=== PATIENT | male | born 1955 | race Caucasian/White ===

== ENCOUNTER → 2017-02-21 | Outpatient (CLI) | payer BC ==
--- NOTE | 2017-02-21 14:43 | XR ---
Lumbar spine HISTORY: Sciatica left side, left hip pain or graph 3 views of the lumbar spine No comparisons Multilevel spondylosis is present with loss of disc height at the intervertebral levels. Vacuum pheno nette present at L5-S1. Sclerosis present in the posterior elements of the lower lumbar spine. There is a mild levoscoliosis centered at L2. Lumbar vertebral bodies show preserved height and bone minera lization. There are vascular calcifications present within the aorta. IMPRESSION: Degenerative disc disease, facet arthropathy, spinal curvature.
== END | disposition home or self-care (01) ==
LOC: RADXRMAIN 13:37
PROVIDERS: ATTEND Family Medicine
DX: M51.16 Intervertebral disc disorders with radiculopathy, lumbar region (principal); M46.96 Unspecified inflammatory spondylopathy, lumbar region; M43.9 Deforming dorsopathy, unspecified
CPT/HCPCS: 72100

== ENCOUNTER → 2017-03-25 | Outpatient (CLI) | payer BC ==
--- NOTE | 2017-03-25 10:59 | MR ---
EXAMINATION TYPE: MR lumbar spine wo con DATE OF EXAM: 03/25/2017 COMPARISON: Plain film 02/21/2017 HISTORY: Sciatica, left side, back pain, left leg numbness TECHNIQUE: Multiplanar, multisequence images of the lumbar spine were acquired. L1-L2: Posterior broad-based disc bulge causes anterolateral mass effect on the thecal sac somewhat e ccentric towards the right. No central stenosis or foraminal encroachment. L2-L3: Posterior extension of endplate disc complex causes mild anterior mass effect on the thecal sa c. No significant central stenosis or foraminal encroachment. There is facet arthropathy encroaching on the right lateral recess. L3-L4: Posterior broad-based disc bulge, endplate disc complex causes anterior mass effect on the the vasiliy sac, only mild central canal stenosis is present. There is facet arthropathy with hypertrophy of the ligamentum flavum encroaches slightly on the lateral recesses. There is some mild foraminal encro achment on the right contributed by scoliosis. L4-L5: Left posterior paracentral disc herniation causes anterolateral mass effect on the thecal sac, mild central canal stenosis, there is facet arthropathy with hypertrophy of the ligamentum flavum en croaching on the lateral recesses, this mass effect greater on the posterior lateral thecal sac on th e left than on the right which may be contributed by the scoliosis. Circumferential extension of endp late disc complex is noted. L5-S1: Posterior extension of endplate disc complex causes anterior mass effect on the thecal sac linette ewhat eccentric towards the right, circumferential extension endplate disc complex causes foraminal e ncroachment left greater than right. Lumbar segments are intact. No paraspinal masses are identified. Conus medullaris has a normal appe arance. There is a spinal curvature. Multilevel spondylosis is present. There is loss of disc height and signal at the intervertebral levels, multilevel vacuum phenomenon present. Endplate discogenic ma rrow signal changes are present. There is a spinal curvature. The left kidney shows a cystic focus in the renal pelvis. IMPRESSION: Degenerative disc disease, facet arthropathy, scoliosis.
== END | disposition home or self-care (01) ==
LOC: RADMRIMAIN 06:36
PROVIDERS: ATTEND Family Medicine
DX: M51.16 Intervertebral disc disorders with radiculopathy, lumbar region (principal); M41.86 Other forms of scoliosis, lumbar region; M46.86 Other specified inflammatory spondylopathies, lumbar region
CPT/HCPCS: 72148

== ENCOUNTER → 2017-08-19 | Outpatient (CLI) | payer BC ==
--- NOTE | 2017-08-19 14:16 | XR ---
EXAMINATION TYPE: XR chest 2V DATE OF EXAM: 08/19/2017 COMPARISON: NONE HISTORY: Preoperative clearance. No complaints. TECHNIQUE: Frontal and lateral views of the chest are obtained. FINDINGS: There is no focal air space opacity, pleural effusion, or pneumothorax seen. The cardiac silhouette size is within normal limits. The osseous structures are intact. Acromioclavicular arthr opathy is incidentally noted bilaterally. IMPRESSION: No acute cardiopulmonary process.
== END | disposition home or self-care (01) ==
LOC: RADXRMAIN 13:44
PROVIDERS: ATTEND Orthopaedic Surgery Orthopaedic Surgery of the Spine
DX: Z01.818 Encounter for other preprocedural examination (principal); Z01.812 Encounter for preprocedural laboratory examination
CPT/HCPCS: 71046

== ENCOUNTER → 2021-06-05 | Outpatient (CLI) | payer BC ==
[2021-06-05 14:06] LABS: African American GFR (CKD) >90 (>60 ml/min/1.73 sqM); Blood Urea Nitrogen 18 mg/dL (9-20); Non-African American GFR(CKD) >90 (>60 ml/min/1.73 sqM)
--- NOTE | 2021-06-05 14:57 | CT ---
EXAMINATION TYPE: CT iac w con DATE OF EXAM: 06/05/2021 COMPARISON: None HISTORY: Pulsatile tinnitus of right ear. CT DLP: 258 mGycm Automated exposure control for dose reduction was used. CONTRAST: CT scan of the IACs is performed with IV Contrast, patient injected with 100ml mL of Isovue 300. FINDINGS: The external auditory canals are patent bilaterally. Mastoid air cells show no evidence of abnormal opacification bilaterally. The middle ear ossicles are symmetric and unremarkable. There is no evidence of suspicious surrounding soft tissue density to suggest cholesteatoma. The scutum is preserved bilaterally. The cochlea and the semicircular canals are symmetric and unremarkable. Ves tibular aqueduct and internal carotid canal appear unremarkable. Temporomandibular joints are mainta ined bilaterally. IMPRESSION: No significant abnormality seen to account for patient's symptoms.
--- NOTE | 2021-06-05 15:05 | US ---
EXAMINATION TYPE: US carotid duplex BILAT DATE OF EXAM: 06/05/2021 COMPARISON: NONE CLINICAL HISTORY: H93.A9 Pulsatile tinnitus. EXAM MEASUREMENTS: RIGHT: Peak Systolic Velocity (PSV) cm/sec ----- Right CCA: 80.8 ----- Right ICA: 85.7 ----- Right ECA: 108 ICA/CCA ratio: 1.06 RIGHT: End Diastole cm/sec ----- Right CCA: 31.7 ----- Right ICA: 28.0 ----- Right ECA: 28.6 LEFT: Peak Systolic Velocity (PSV) cm/sec ----- Left CCA: 90.0 ----- Left ICA: 87.8 ----- Left ECA: 81.8 ICA/CCA ratio: 0.98 LEFT: End Diastole cm/sec ----- Left CCA: 26.3 ----- Left ICA: 34.0 ----- Left ECA: 14.3 VERTEBRALS (direction of flow): Right Vertebral: Antegrade Left Vertebral: Antegrade Rhythm: Normal No elevated velocities Hypoechoic mass seen distal to Right bifurcation measuring 1.1 x 0.9 x 0.9 cm IMPRESSION: 1. No hemodynamically significant stenosis. 2. Carotid body tumor is difficult to exclude. Correlate clinically. Criteria for Assigning % of Stenosis / Diameter reduction (Estimation based on the indirect measurements of the internal carotid artery velocities (ICA PSV). 1. Normal (no stenosis)=ICA PSV < 125 cm/s: ratio < 2.0: ICA EDV<40 cm/s. 2. Less than 50% stenosis=ICA PSV < 125 cm/s: ratio < 2.0: ICA EDV<40 cm/s. 3. 50 to 69% stenosis=ICA PSV of 125 to 230 cm/s: ration 2.0 ? 4.0: ICA EDV 40-100 cm/s. 4. Greater than 70% stenosis to near occlusion= ICA PSV > 230 cm/s: ratio > 4.0: ICA EDV > 100 cm/s. 5. Near occlusion= ICA PSV velocities may be low or undetectable: variable ratio and ICA EDV. 6. Total occlusion=unable to detect flow.
== END | disposition home or self-care (01) ==
LOC: RADCTMAIN 13:29
PROVIDERS: ATTEND Otolaryngology
DX: H93.A9 Pulsatile tinnitus, unspecified ear (principal)
CPT/HCPCS: 82565; 84520; 93880; 70481; 36415; Q9967

== ENCOUNTER → 2021-06-18 | Outpatient (CLI) | payer BC ==
[2021-06-18 06:51] LABS: African American GFR (CKD) >90 (>60 ml/min/1.73 sqM); Blood Urea Nitrogen 22 mg/dL (9-20); Non-African American GFR(CKD) 86 (>60 ml/min/1.73 sqM)
--- NOTE | 2021-06-18 11:25 | CT ---
EXAMINATION TYPE: CT soft tissue neck w con DATE OF EXAM: 06/18/2021 7:18 AM COMPARISON: None available HISTORY: Pulsatile and ringing in ears, abnormal carotid doppler CT DLP: 443.1 mGycm Automated exposure control for dose reduction was used. CONTRAST: CT scan of the neck is performed following with IV Contrast, patient injected with 100 mL of Isovue 3 00. Axial images are obtained, coronal and sagittal reformatted images are reviewed. FINDINGS: Artifacts from the dental work. Well-defined soft tissue nodule is seen measuring 11 x 12 x 13 mm and seen severity between the proximal portion of the right internal carotid artery and the right epidemiology intern al jugular vein without nydia invasion or significant stenosis of the adjacent vessels. This incomple te characterized and could represent a prominent lymph node however other soft tissue lesion at that location cannot be excluded. No significant enhancement is seen in this single phase CT scan. Unremarkable nasopharynx, oropharynx, hypopharynx, larynx, and visualized portion of the trachea and esophagus. Scattered arterial atherosclerotic calcifications. No significant stenosis of the internal carotid arteries. Please note that CTA was not performed. Patent major neck vessels. Scattered millimetric hypodensities are seen within the thyroid gland. Symmetrical unremarkable parot id and submandibular salivary glands. No other pathologically enlarged lymph nodes in the neck. Bilat eral apical pleural minimal fibrotic changes. Mild mucosal thickening of the left maxillary sinus. Cl ear mastoid air cells. Degenerative changes of the cervical spine. IMPRESSION: 13 mm soft tissue nodule is seen between the proximal portion of the right internal carotid artery an d the right internal jugular vein as described above. The location and enhancement is atypical for ca rotid body tumor or paragangliomas. This could represent a prominent lymph node. Further scintigraphy including MIBG or Octreoscan can be considered. If negative, Another follow-up CT scan in 2-3 months should be also considered for reassessment.
== END | disposition home or self-care (01) ==
LOC: RADCTMAIN 06:11
PROVIDERS: ATTEND Otolaryngology
DX: R22.1 Localized swelling, mass and lump, neck (principal)
CPT/HCPCS: 82565; 84520; 70491; 36415; Q9967

== ENCOUNTER → 2021-08-13 | Outpatient (CLI) | payer BC ==
--- NOTE | 2021-08-13 11:36 | P.STRESS ---
- Stress Test Note Stress Test Results/Findings: Exam Performed: stress echo exercise Exam Date: 08/13/21 Reason for Exam: chest discomfort Height: 6 ft Weight: 87.543 kg Protocol: Franky Stage: III Duration of Exercise: 7:11 min Resting Heart Rate: 69 Resting Blood Pressure: 121/71 Maximum Achieved Heart Rate: 154 Maximum Achieved Blood Pressure: 185/66 85% PMHR: 131 100% PMHR: 154 METS: Technologist Comment: Stress Test Results/Findings: Patient underwent exercise stress echo with a Franky protocol treadmill stress test. Patient exercised into Stage 2 for a total of 7 minutes and 11 seconds. Patient's maximum heart rate was 154 which represented 100% age-predicted maximum heart rate. There was no chest pain or pressure noted with exertion. Stress EKG portion: At baseline patient's EKG showed normal sinus rhythm, normal axis, no significant ST or T wave abnormalities. At peak exercise, EKG showed abnormal EKG response with 1.[address] depressions in the inferior and lateral leads concerning for ischemia. Stress echo portion: 2-D echocardiogram was performed in the parasternal long, personal short, apical 2 and apical four-chamber views at rest, peak exercise and in recovery. At baseline, echocardiogram showed left ventricular ejection fraction 55% without wall motion abnormalities. With peak exercise, echocardiogram shows small sized basal inferior and inferolateral hypokinesis consistent with ischemia. Conclusions: 1. Abnormal EKG and echo response to exercise with inducible inferior hypokines is. 2. Fair exercise capacity. 3. Normal EF 55%.
--- NOTE | 2021-08-15 11:41 | EST ---
Stress Test Results/Findings: Exam Performed: stress echo exercise Exam Date: 08/13/21 Reason for Exam: chest discomfort Height: 6 ft Weight: 87.543 kg Protocol: Franky Stage: III Duration of Exercise: 7:11 min Resting Heart Rate: 69 Resting Blood Pressure: 121/71 Maximum Achieved Heart Rate: 154 Maximum Achieved Blood Pressure: 185/66 85% PMHR: 131 100% PMHR: 154 METS: Technologist Comment: Stress Test Results/Findings: Patient underwent exercise stress echo with a Franky protocol treadmill stress test. Patient exercised into Stage 2 for a total of 7 minutes and 11 seconds. Patient's maximum heart rate was 154 which represented 100% age-predicted maximum heart rate. There was no chest pain or pressure noted with exertion. Stress EKG portion: At baseline patient's EKG showed normal sinus rhythm, normal axis, no significant ST or T wave abnormalities. At peak exercise, EKG showed abnormal EKG response with 1.[address] depressions in the inferior and lateral leads concerning for ischemia. Stress echo portion: 2-D echocardiogram was performed in the parasternal long, personal short, apical 2 and apical four-chamber views at rest, peak exercise and in recovery. At baseline, echocardiogram showed left ventricular ejection fraction 55% without wall motion abnormalities. With peak exercise, echocardiogram shows small sized basal inferior and inferolateral hypokinesis consistent with ischemia. Conclusions: 1. Abnormal EKG and echo response to exercise with inducible inferior hypokinesis. 2. Fair exercise capacity. 3. Normal EF 55%. MTDD
== END | disposition home or self-care (01) ==
LOC: RADNMMAIN 09:30
PROVIDERS: ATTEND Family Medicine
DX: R94.31 Abnormal electrocardiogram [ECG] [EKG] (principal); I10 Essential (primary) hypertension
CPT/HCPCS: 93306; 93351

== ENCOUNTER 2021-09-20 07:47 | Day surgery (SDC) | payer BC ==
[2021-09-18 12:24] VITALS: BMI 27.8
[~2021-09-20 07:47] MED LIST: ALPRAZolam 0.25 MG TAB PO PRN; ALPRAZolam 0.5 MG TAB PO PRN; ASPIRIN 325 MG TAB PO STA; ATORVASTATIN 80 MG TAB PO STA; HEPARIN SODIUM,PORCINE 10,000 UNIT in SODIUM CHLORIDE 0.9% 1,000 ML IRRIGATION PRN; HEPARIN SODIUM,PORCINE 2,500 UNIT in SODIUM CHLORIDE 0.9% 250 ML IRRIGATION PRN; NITROGLYCERIN SL TABS 0.4 MG TAB SUBLINGUAL PRN; SODIUM CHLORIDE 0.9% 1,000 ML in EMPTY BAG 1 BAG IV SCH
[2021-09-20] MEDS ORDERED: SODIUM CHLORIDE 0.9% 1,000 ML IV ONE (08:05)
[2021-09-20 08:18] VITALS: RESP 16; TEMP 98.2
[2021-09-20] MEDS ORDERED: VERAPAMIL 2.5 MG/ML 2 ML AMP ONE (08:45)
[2021-09-20] MEDS ORDERED: HEPARIN SODIUM 1,000 UN/ML (10ML VL) ONE (08:54)
[2021-09-20] MEDS ORDERED: fentaNYL (PF) 50 MCG/ML 2 ML AMP ONE (08:55)
[2021-09-20] MEDS ORDERED: fentaNYL (PF) 50 MCG/ML 2 ML AMP IVP ONE (09:22)
[2021-09-20] MEDS: MIDAZOLAM 2 MG/2 ML VIAL IVP ONE ×2 (09:22→09:27)
[2021-09-20] MEDS ORDERED: LIDOCAINE 1% INJ 10MG/ML (5 ML VIAL-PF) SQ ONE (09:23)
[2021-09-20] MEDS ORDERED: VERAPAMIL SYRINGE (5 MG/10 ML) INTRAARTER ONE (09:25)
[2021-09-20] MEDS ORDERED: HEPARIN SODIUM 1,000 UN/ML (10ML VL) IV ONE (09:29)
[2021-09-20] MEDS ORDERED: IOPAMIDOL-370 125ML BTL INJ ONE (09:36)
[2021-09-20 12:20] VITALS: PULSE 60
[2021-09-20 15:32] VITALS: BP 138/72
== END 2021-09-20 14:30 | disposition home or self-care (01) ==
LOC: CATHCVL 07:47
PROVIDERS: ATTEND Internal Medicine
DX: R94.39 Abnormal result of other cardiovascular function study (principal); I10 Essential (primary) hypertension; Z20.822 Contact with and (suspected) exposure to COVID-19; Z87.891 Personal history of nicotine dependence; Z79.82 Long term (current) use of aspirin; Z79.899 Other long term (current) drug therapy; Z88.0 Allergy status to penicillin
CPT/HCPCS: 93458; 87635; C1894; J2250; J2001; J3010; J1644; Q9967

== ENCOUNTER → 2021-09-26 | Outpatient (CLI) | payer BC ==
--- NOTE | 2021-09-27 00:46 | MR ---
EXAMINATION TYPE: MR neck wo/w con DATE OF EXAM: 09/26/2021 COMPARISON: CT scan 06/18/2021 HISTORY: Nodule in neck, non-palpable, found on CT imaging. CONTRAST: Standard multiplanar, multisequence MRI departmental protocol images were obtained without contrast a nd with 9 mL intravenous Gadavist gadolinium contrast. The thyroid gland is symmetric. Trachea appears normal. There is normal flow-void in the jugular vein s and carotid arteries. There is 8mm lymph node in the anterior triangle on the right side adjacent t o the jugular vein. This appears unchanged compared to old CT scan. The parotid glands are symmetric. Submandibular salivary glands appear symmetric. No other significant cervical lymph node identified. No evidence of posterior fossa abnormality. Brainstem appears intact. There is some mucosal thickeni ng in the left maxillary sinus. There is no pathologic enhancement. The tongue appears normal. Epiglottis appears normal. Tonsils and adenoids appear normal. IMPRESSION: Single 8mm anterior triangle right-sided cervical lymph node unchanged and of doubtful clinical signi ficance. No suspicious neck mass. There is minimal left maxillary sinusitis increased compared to old exam. There is noted left side posterior disc herniation and spur formation at C3-4 impinging on the neural foramen. Cervical spine not optimally evaluated on this exam.
== END | disposition home or self-care (01) ==
LOC: RADMRIMAIN 19:56
PROVIDERS: ATTEND Otolaryngology
DX: J32.0 Chronic maxillary sinusitis (principal); M50.21 Other cervical disc displacement, high cervical region; M25.78 Osteophyte, vertebrae
CPT/HCPCS: 70543; A9585

== ENCOUNTER → 2022-05-11 | Outpatient (CLI) | payer BC ==
--- NOTE | 2022-05-12 03:24 | MR ---
EXAMINATION TYPE: MR neck wo/w con DATE OF EXAM: 05/11/2022 COMPARISON: 09/26/2021 HISTORY: Follow-up neck nodule CONTRAST: Multiplanar multi echo imaging of the neck performed without and with the IV contrast gadolinium 9 mL . Of the T2 axial images there is demonstrated some anterior triangle cervical lymph nodes adjacent to the jugular veins and the largest on the right side measures 10 mm. This appears to be the nodular de nsity described on this recent CT scan of 06/18/2021. There is no evidence of a posterior fossa mass. Brainstem is intact. The parotid glands are symmetric . The submandibular salivary glands are symmetric. There is moderate uncovertebral spurring in the ce rvical spine at C3-4 on the left side. There is left-sided narrowing of the neural foramen. There is also less severe neural foraminal narrowing on the left side at C5-4-5 and C5-6. IMPRESSION: Right-sided enhancing nodule consistent with cervical ordinary lymph node adjacent to the jugular vei n. Spondylotic changes with left-sided neural foraminal stenosis at C3-4.
== END | disposition home or self-care (01) ==
LOC: RADMRIMAIN 14:25
PROVIDERS: ATTEND Otolaryngology
DX: M47.812 Spondylosis without myelopathy or radiculopathy, cervical region (principal); E04.1 Nontoxic single thyroid nodule; M99.71 Connective tissue and disc stenosis of intervertebral foramina of cervical region; R22.1 Localized swelling, mass and lump, neck; M51.24 Other intervertebral disc displacement, thoracic region
CPT/HCPCS: 70543; A9585

== ENCOUNTER 2022-09-09 12:39 | Emergency (ER) | payer MEDICARE ==
[2022-09-09 12:44] VITALS: TEMP 97.7
[2022-09-09] MEDS ORDERED: SODIUM CHLORIDE 0.9% 500 ML 500 ML IV STA (13:14)
--- NOTE | 2022-09-09 13:32 | ED ---
General Adult HPI - General Chief complaint: Recheck/Abnormal Lab/Rx Stated complaint: high blood pressure Time Seen by Provider: 09/09/22 13:02 Source: patient, RN notes reviewed, old records reviewed Mode of arrival: ambulatory Limitations: no limitations - History of Present Illness Initial comments: 67-year-old male presenting for evaluation of elevated blood pressure. Patient does have history of hypertension but states that his blood pressure has been elevated recently. He is currently on 40 mg of lisinopril which she has been compliant with. Patient states he has also had some increased fatigue and has been more sleepy than normal. He denies central chest pain currently but states he has also had some intermittent chest pain as well. He complains of a mild headache. No focal numbness or weakness. - Related Data Home Medications Medication Instructions Recorded Confirmed Esomeprazole Magnesium [NexIUM] 40 mg PO DAILY 03/06/17 09/20/21 ALPRAZolam [Xanax] 0.5 mg PO BID PRN 09/18/21 09/20/21 Aspirin 325 mg PO DAILY 09/18/21 09/20/21 Metoprolol Succinate (ER) [Toprol 50 mg PO DAILY 09/18/21 09/20/21 Xl] lisinopriL 40 mg PO DAILY 09/18/21 09/20/21 Previous Rx's Medication Instructions Recorded hydroCHLOROthiazide 25 mg PO DAILY 30 Days #30 tablet 09/09/22 Allergies Allergy/AdvReac Type Severity Reaction Status Date / Time Penicillins Allergy Rash/Hives Verified 09/09/22 12:44 Review of Systems ROS Statement: Those systems with pertinent positive or pertinent negative responses have been documented in the HPI. ROS Other: All systems not noted in ROS Statement are negative. Past Medical History Past Medical History: GERD/Reflux, Hypertension Additional Past Medical History / Comment(s): hx migraines, History of Any Multi-Drug Resistant Organisms: None Reported Past Surgical History: Back Surgery, Hernia Repair Additional Past Surgical History / Comment(s): arthroscopy left knee, rt hand s urgery, laser eye surgery Past Anesthesia/Blood Transfusion Reactions: No Reported Reaction Past Psychological History: No Psychological Hx Reported Smoking Status: Former smoker Past Alcohol Use History: Occasional Past Drug Use History: Marijuana - Past Family History Mother Family Medical History: Cancer Father Family Medical History: Cancer General Exam Limitations: no limitations General appearance: alert, in no apparent distress Head exam: Present: atraumatic, normocephalic Eye exam: Present: normal appearance, PERRL ENT exam: Present: normal exam Neck exam: Present: normal inspection. Absent: tenderness Respiratory exam: Present: normal lung sounds bilaterally. Absent: respiratory distress, wheezes Cardiovascular Exam: Present: regular rate, normal rhythm GI/Abdominal exam: Present: soft. Absent: distended, tenderness, guarding Extremities exam: Present: normal inspection, normal capillary refill. Absent: pedal edema Neurological exam: Present: alert, oriented X3, CN II-XII intact. Absent: motor sensory deficit Psychiatric exam: Present: normal affect, normal mood Skin exam: Present: warm, dry, intact. Absent: cyanosis, diaphoretic Course Vital Signs 09/09/22 09/09/22 12:41 14:40 Temperature 97.7 F Pulse Rate 70 56 L Respiratory 16 18 Rate Blood Pressure 173/92 157/88 O2 Sat by Pulse 97 Oximetry EKG Findings - EKG Comments: EKG Findings:: EKG: Sinus rhythm rate of 60, MT interval 152, QRS duration 96, QTC 382, no ST segment elevation, there is artifact limiting the assessment. - EKG Results: EKG: interpreted by ESTELLE Medical Decision Making - Medical Decision Making Was pt. sent in by a medical professional or institution ([facility], [facility], urgent care, hospital, or residential...) When possible be specific @ -[No] Did you speak to anyone other than the patient for history (EMS, parent, family, police, friend...)? What history was obtained from this source @ -[No] Did you review nursing and triage notes (agree or disagree)? Why? @ -[I reviewed and agree with nursing and triage notes] Were old charts reviewed (outside hosp., previous admission, EMS record, old EKG, old radiological studies, urgent care reports/EKG's, residential records)? Report findings @ -[No old charts were reviewed] Differential Diagnosis (chest pain, altered mental status, abdominal pain women, abdominal pain men, vaginal bleeding, weakness, fever, dyspnea, syncope, headache, dizziness, GI bleed, back pain, seizure, CVA, palpatations, mental health, musculoskeletal)? @Hypertension, renal failure, intracranial mass or hemorrhage, hypertensive urgency or emergency EKG interpreted by me (3pts min.). @ -[As above] X-rays interpreted by me (1pt min.). @ Chest x-ray reviewed by myself, negative for any acute findings CT interpreted by me (1pt min.). @ CT brain performed without contrast, negative for intracranial hemorrhage or mass effect U/S interpreted by me (1pt. min.). @ -[None done] What testing was considered but not performed or refused? (CT, X-rays, U/S, labs)? Why? @ -[None] What meds were considered but not given or refused? Why? @ -[None] Did you discuss the management of the patient with other professionals (professionals i.e. , PA, [facility], lab, RT, psych nurse, social science teacher, python architect, teacher, housing management officer, embedded case manager)? Give summary @ -[No] Was smoking cessation discussed for >3mins.? @ -[No] Was critical care preformed (if so, how long)? @ -[No] Were there social determinants of health that impacted care today? How? (Homelessness, low income, unemployed, alcoholism, drug addiction, transportation, low edu. Level, literacy, decrease access to med. care, [facility], rehab)? @ -[No] Was there de-escalation of care discussed even if they declined (Discuss DNR or withdrawal of care, Hospice)? DNR status @ -[No] What co-morbidities impacted this encounter? (DM, HTN, Smoking, COPD, CAD, Cancer, CVA, ARF, Chemo, Hep., AIDS, mental health diagnosis, sleep apnea, morbid obesity)? @ -Hypertension Was patient admitted / discharged? Hospital course, mention meds given and route, prescriptions, significant lab abnormalities, going to OR and other pertinent info. @ -67-year-old male presenting for evaluation of elevated blood pressure. Blood pressure is elevated upon arrival but is down trending in the emergency department without treatment. He has normal laboratory testing, normal EKG, normal head CT and normal chest x-ray. I will add HCTZ this patient's regimen and he should follow-up with his primary care physician. Undiagnosed new problem with uncertain prognosis? @ -[No] Drug Therapy requiring intensive monitoring for toxicity (Heparin, Nitro, Insulin, Cardizem)? @ -[No] Were any procedures done? @ -[No] Diagnosis/symptom? @ Hypertension Acute, or Chronic, or Acute on Chronic? @ Acute on chronic - Lab Data Result diagrams: 09/09/22 13:26 09/09/22 13:26 Lab Results 09/09/22 09/09/22 09/09/22 Range/Units 13:26 13:26 13:26 WBC 5.7 (3.8-10.6) k/uL RBC 5.03 (4.30-5.90) m/uL Hgb 14.3 (13.0-17.5) gm/dL Hct 44.1 (39.0-53.0) % MCV 87.7 (80.0-100.0) fL MCH 28.4 (25.0-35.0) pg MCHC 32.3 (31.0-37.0) g/dL RDW 13.6 (11.5-15.5) % Plt Count 223 (150-450) k/uL MPV 8.0 Neutrophils % 58 % Lymphocytes % 30 % Monocytes % 6 % Eosinophils % 4 % Basophils % 1 % Neutrophils # 3.3 (1.3-7.7) k/uL Lymphocytes # 1.7 (1.0-4.8) k/uL Monocytes # 0.4 (0-1.0) k/uL Eosinophils # 0.2 (0-0.7) k/uL Basophils # 0.1 (0-0.2) k/uL PT 10.3 (9.0-12.0) sec INR 1.0 (<1.2) APTT 24.1 (22.0-30.0) sec Sodium 140 (137-145) mmol/L Potassium 4.1 (3.5-5.1) mmol/L Chloride 105 (98-107) mmol/L Carbon Dioxide 27 (22-30) mmol/L Anion Gap 8 mmol/L BUN 15 (9-20) mg/dL Creatinine 0.88 (0.66-1.25) mg/dL Est GFR (CKD-EPI)AfAm >90 (>60 ml/min/1.73 sqM) Est GFR (CKD-EPI)NonAf 89 (>60 ml/min/1.73 sqM) Glucose 88 (74-99) mg/dL Calcium 8.8 (8.4-10.2) mg/dL Phosphorus 3.1 (2.5-4.5) mg/dL Total Bilirubin 1.6 H (0.2-1.3) mg/dL AST 28 (17-59) U/L ALT 34 (4-49) U/L Alkaline Phosphatase 69 (38-126) U/L Troponin I (0.000-0.034) ng/mL Total Protein 6.6 (6.3-8.2) g/dL Albumin 4.0 (3.5-5.0) g/dL 09/09/22 Range/Units 13:26 WBC (3.8-10.6) k/uL RBC (4.30-5.90) m/uL Hgb (13.0-17.5) gm/dL Hct (39.0-53.0) % MCV (80.0-100.0) fL MCH (25.0-35.0) pg MCHC (31.0-37.0) g/dL RDW (11.5-15.5) % Plt Count (150-450) k/uL MPV Neutrophils % % Lymphocytes % % Monocytes % % Eosinophils % % Basophils % % Neutrophils # (1.3-7.7) k/uL Lymphocytes # (1.0-4.8) k/uL Monocytes # (0-1.0) k/uL Eosinophils # (0-0.7) k/uL Basophils # (0-0.2) k/uL PT (9.0-12.0) sec INR (<1.2) APTT (22.0-30.0) sec Sodium (137-145) mmol/L Potassium (3.5-5.1) mmol/L Chloride (98-107) mmol/L Carbon Dioxide (22-30) mmol/L Anion Gap mmol/L BUN (9-20) mg/dL Creatinine (0.66-1.25) mg/dL Est GFR (CKD-EPI)AfAm (>60 ml/min/1.73 sqM) Est GFR (CKD-EPI)NonAf (>60 ml/min/1.73 sqM) Glucose (74-99) mg/dL Calcium (8.4-10.2) mg/dL Phosphorus (2.5-4.5) mg/dL Total Bilirubin (0.2-1.3) mg/dL AST (17-59) U/L ALT (4-49) U/L Alkaline Phosphatase (38-126) U/L Troponin I <0.012 (0.000-0.034) ng/mL Total Protein (6.3-8.2) g/dL Albumin (3.5-5.0) g/dL Disposition Clinical Impression: Hypertension Disposition: HOME SELF-CARE Condition: Good Instructions (If sedation given, give patient instructions): Hypertension (ED) Prescriptions: hydroCHLOROthiazide 25 mg PO DAILY 30 Days #30 tablet Is patient prescribed a controlled substance at d/c from ED?: No Referrals: Rizwan Brady MD [Primary Care Provider] - 1-2 days Time of Disposition: 15:06
[2022-09-09 13:37] LABS: Basophils # (A) 0.1 k/uL (0-0.2); Basophils % (A) 1 %; Eosinophils # (A) 0.2 k/uL (0-0.7); Eosinophils % (A) 4 %; HCT 44.1 % (39.0-53.0); HGB 14.3 gm/dL (13.0-17.5); Lymphocytes # (A) 1.7 k/uL (1.0-4.8); Lymphocytes % (A) 30 %; MCH 28.4 pg (25.0-35.0); MCHC 32.3 g/dL (31.0-37.0); MCV 87.7 fL (80.0-100.0); Monocytes # (A) 0.4 k/uL (0-1.0); Monocytes % (A) 6 %; Neutrophils # (A) 3.3 k/uL (1.3-7.7); Neutrophils % (A) 58 %; Platelet Count 223 k/uL (150-450); RBC 5.03 m/uL (4.30-5.90); RDW 13.6 % (11.5-15.5); WBC 5.7 k/uL (3.8-10.6)
--- NOTE | 2022-09-09 13:39 | XR ---
EXAMINATION TYPE: XR chest 2V DATE OF EXAM: 09/09/2022 COMPARISON: 08/19/2017 INDICATION: Weakness, hypertension TECHNIQUE: Frontal and lateral views of the chest are obtained. FINDINGS: The heart size is normal. The pulmonary vasculature is normal. The lungs are clear. IMPRESSION: 1. No acute pulmonary process.
[2022-09-09 13:46] LABS: Partial Thromboplastin Time 24.1 sec (22.0-30.0); Prothrombin Time 10.3 sec (9.0-12.0)
[2022-09-09 13:52] LABS: ALT 34 U/L (4-49); AST 28 U/L (17-59); African American GFR (CKD) >90 (>60 ml/min/1.73 sqM); Alkaline Phosphatase 69 U/L (38-126); Anion Gap 8 mmol/L; Blood Urea Nitrogen 15 mg/dL (9-20); Calcium 8.8 mg/dL (8.4-10.2); Carbon Dioxide 27 mmol/L (22-30); Chloride 105 mmol/L (98-107); Glucose 88 mg/dL (74-99); Non-African American GFR(CKD) 89 (>60 ml/min/1.73 sqM); Phosphorus 3.1 mg/dL (2.5-4.5); Potassium 4.1 mmol/L (3.5-5.1); Sodium 140 mmol/L (137-145); Total Bilirubin 1.6 mg/dL (0.2-1.3); Total Protein 6.6 g/dL (6.3-8.2)
--- NOTE | 2022-09-09 14:10 | CT ---
EXAMINATION TYPE: CT brain wo con DATE OF EXAM: 09/09/2022 COMPARISON: 06/05/2021 CT IAC INDICATION: hypertension, [place] DLP: 1143.4 mGycm, Automated exposure control for dose reduction was used. CONTRAST: None CT of the brain is performed utilizing 3 mm thick sections through the posterior fossa and 3 mm thick sections through the remaining calvarium. Study is performed within 24 hours of arrival to the hosp [facility]. No abnormal hyperdensity is present to suggest an acute intracranial hemorrhage. No mass lesion is evident. No acute infarcts are evident. Ventricles and sulci are appropriate for the patient age. Mild mucosal thickening is within posterior frontal sinuses. Some mild mucosal thickening is within s cattered ethmoid air cells. Some inferior right sphenoid sinus mucosal thickening is present. Posteri or mucosal thickening within the inferior maxillary sinuses are present. Mastoid air cells appear erin ar. No acute fractures are evident. IMPRESSIONS: 1. No acute intracranial process. Follow-up MRI can be performed as clinically indicated. 2. Mild scattered paranasal sinus mucosal thickening.
[2022-09-09 14:41] VITALS: RESP 18
[2022-09-09 15:29] VITALS: BP 174/89; PULSE 58
== END 2022-09-09 15:29 | disposition home or self-care (01) ==
LOC: EC 12:39
DX: I10 Essential (primary) hypertension (principal); K21.9 Gastro-esophageal reflux disease without esophagitis; F12.90 Cannabis use, unspecified, uncomplicated; Z79.82 Long term (current) use of aspirin; Z79.899 Other long term (current) drug therapy; Z87.891 Personal history of nicotine dependence; Z88.0 Allergy status to penicillin
CPT/HCPCS: 36415; 70450; 71046; 80053; 84100; 84484; 85025; 85610; 85730; 93005; 96360; 99284

== ENCOUNTER → 2022-09-13 | Outpatient (CLI) | payer MEDICARE ==
--- NOTE | 2022-09-13 09:29 | US ---
EXAMINATION TYPE: US Aorta Screening DATE OF EXAM: 09/13/2022 COMPARISON: NONE CLINICAL INDICATION: Male, 67 years old with history of Z13.6 ENCOUNTER FOR SCREENING FOR CARDIOVASCU LAR D; screening TECHNIQUE: Multiple sonographic images of the abdominal aorta are obtained. FINDINGS: EXAM MEASUREMENTS: Abdominal Aorta: Proximal: 2.4 x 2.6cm Mid: 2.0 x 2.0cm Distal: 1.6 x 1.9cm Bifurcation: RT: 1.0 x 1.0cm LT: 1.2 x 1.3cm [employer] NOTES: No evidence of AAA within visualized portions at this time No ultrasound evidence for abdominal aortic aneurysm. IMPRESSION: No ultrasound evidence for abdominal aortic aneurysm.
== END | disposition home or self-care (01) ==
LOC: RADUSWWP 08:39
PROVIDERS: ATTEND Family Medicine
DX: Z13.6 Encounter for screening for cardiovascular disorders (principal)
CPT/HCPCS: 76706

== ENCOUNTER → 2023-06-02 | Outpatient (CLI) | payer MEDICARE ==
--- NOTE | 2023-06-03 10:29 | MR ---
EXAMINATION TYPE: MR neck wo/w con DATE OF EXAM: 06/02/2023 3:33 PM CLINICAL INDICATION:Male, 67 years old with history of R22.1 LOCALIZED SWELLING, MASS AND LUMP, NECK; PHH, Recheck of right sided mass COMPARISON: MRI Neck 09/26/2021 and 05/11/2022. CT 06/18/2021 TECHNIQUE: Multi planar, multi sequence imaging was performed of the neck soft tissues. MR contrast: IV Contrast: 9 cc Gadavist FINDINGS: The high T2 lesion near the carotid bifurcation on the right measuring 11 mm on axial imaging is not significantly changed dating back to 09/26/2021. Glottis appears unremarkable. Several nonenlarged anterior chain lymph nodes are identified. There is no evidence to suggest a soft tissue mass. The cervical vertebral bodies have preserved heights and alignment. Multilevel disc desiccation and anterior osteophytosis are present. There is at least moderate spinal canal stenosis at C3-C4. The ce rvical spinal cord demonstrates a normal appearance. Right thyroid gland nodule measuring 6 mm. IMPRESSION: 1. No significant change in size of right neck soft tissue lesion which is favored represent a lymph node. 2. Moderate C3-C4 canal stenosis secondary to disc osteophyte complex.
== END | disposition home or self-care (01) ==
LOC: RADMRIMAIN 13:51
PROVIDERS: ATTEND Otolaryngology
DX: R22.1 Localized swelling, mass and lump, neck (principal); M25.78 Osteophyte, vertebrae; M48.02 Spinal stenosis, cervical region
CPT/HCPCS: 70543; A9585

== ENCOUNTER → 2023-12-02 | Outpatient (CLI) | payer MEDICARE ==
--- NOTE | 2023-12-02 09:24 | XR ---
EXAMINATION TYPE: XR foot complete LT DATE OF EXAM: 12/02/2023 9:17 AM CLINICAL INDICATION:Male, 68 years old with history of M79.672 PAIN IN LEFT FOOT; PHH COMPARISON: No lump definitively visualized. None TECHNIQUE: XR foot complete LT examined in the AP, oblique, and lateral projections. FINDINGS: No evidence of any acute osseous pathology. Multifocal degeneration changes throughout the joints of the foot with osteophyte formation and joint space narrowing worse at the first digit metatarsophalan geal joint.. Calcaneal plantar spurring is present. IMPRESSION: 1. No evidence of acute fracture. 2. Multifocal degeneration changes throughout the joints of the foot.
== END | disposition home or self-care (01) ==
LOC: RADXRMAIN 09:01
PROVIDERS: ATTEND Family Medicine
DX: M79.672 Pain in left foot (principal)